=== PATIENT | female | born 1995 | race African-American/Black ===

== ENCOUNTER 2017-02-14 20:08 | Emergency (ER) | payer OTHER ==
[~2017-02-14] VITALS: Ht 157.5 cm; Wt 72.6 kg
[2017-02-14 20:38] LABS: URINE BILIRUBIN 1+ (Negative); URINE BLOOD NEGATIVE (Negative); URINE COLOR YELLOW; URINE GLUCOSE-RANDOM* NEGATIVE (Negative); URINE KETONES TRACE (Negative); URINE NITRITE NEGATIVE (Negative); URINE PROTEIN (DIPSTICK) 1+ (Negative); URINE SPECIFIC GRAVITY >= 1.030 (1.003-1.035)
[2017-02-14 20:42] LABS: ICTOTEST (BILI CONFIRMATORY) Negative (Negative)
[2017-02-14 20:43] LABS: SQUAMOUS >10 Many /LPF (0-3)
[2017-02-14 20:44] LABS: AMORPHOUS URATES Many /LPF (None Seen); URINE RBC 3-10 Few /HPF (0-2); URINE WBC 0-5 Rare /HPF (0-5)
[2017-02-14 20:46] LABS: CASTS None Seen /LPF (None Seen)
[2017-02-14 22:34] LABS: ABSOLUTE NEUTROPHILS 4.9 thou/uL (1.4-8.2); BASOPHILS 0.8 % (0.0-2.0); EOSINOPHILS 3.4 % (0.0-3.0); HEMATOCRIT 40.9 % (37.0-47.0); HEMOGLOBIN 13.9 gm/dL (12.0-15.0); LYMPHOCYTES 32.3 % (24.0-44.0); MCH 28.9 pg (26.0-34.0); MCHC 33.9 g/dL (28.0-37.0); MCV 85.2 fL (80.0-100.0); MONOCYTES 8.2 % (1.0-8.0); PLATELET COUNT 325 thou/uL (150-400); POLYS 55.3 % (36.0-66.0); RBC 4.81 mil/uL (4.20-5.00); RDW 14.5 % (10.5-14.5); WBC 8.9 thou/uL (4.0-11.0)
[2017-02-14 22:46] LABS: MANUAL DIFF NO
[2017-02-14 22:51] LABS: CALCIUM 9.3 mg/dL (8.5-10.1); CREATININE 0.7 mg/dL (0.6-1.0); POTASSIUM 3.8 mmol/L (3.5-5.1)
[2017-02-14] MEDS ORDERED: PHENERGAN 25 MG25 M1 PO (22:54)
[2017-02-14] MEDS ORDERED: CARAFATE 1 GM TA1 G1 PO (22:54)
[2017-02-14] MEDS ORDERED: PEPCID20 MG PO (22:54)
[2017-02-14 22:56] LABS: ALBUMIN 3.9 g/dL (3.4-5.0); TOTAL BILIRUBIN 0.8 mg/dL (<0.1-1.0); TOTAL PROTEIN 7.9 g/dL (6.4-8.2)
[2017-02-14 23:05] VITALS: BP 120/71
== END 2017-02-14 23:07 | disposition home or self-care (01) ==
LOC: ER 20:08
PROVIDERS: Physician Assistant
DX: K29.70 Gastritis, unspecified, without bleeding (principal); Z87.891 Personal history of nicotine dependence; F15.10 Other stimulant abuse, uncomplicated

== ENCOUNTER 2019-11-04 11:59 | Emergency (ER) | payer OTHER ==
[~2019-11-04] VITALS: Ht 154.9 cm; Wt 72.6 kg
[~2019-11-04 11:59] MED LIST: CARAFATE 1 GM TA1 G1 PO; PEPCID20 MG PO; PHENERGAN 25 MG25 M1 PO
[2019-11-04 12:11] VITALS: BP 118/69
[2019-11-04] MEDS ORDERED: PYRIDOXINE HCL25 MG PO (12:29)
[2019-11-04] MEDS ORDERED: PNV 29-1 TABLE1 EACH PO (12:29)
== END 2019-11-04 12:44 ==
LOC: ER 11:59
DX: Z32.01 Encounter for pregnancy test, result positive (principal); Z87.891 Personal history of nicotine dependence